=== PATIENT | male | born 2005 | race Caucasian/White ===

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

== ENCOUNTER 2023-11-08 22:22 | Inpatient (IN) ==
[2023-11-09] MEDS: Lactated Ringers 1000 ml BAG 1,000 ML IV ONE ×3 (03:18→08:55)
[2023-11-09] MEDS: Morphine 4 MG/ML VIAL (1 ml) IV ONE ×2 (05:03→09:17)
[2023-11-09] MEDS: Ondansetron 4 mg VIAL 2 MG/ML 2 ml VIAL IV ONE ×2 (05:04→09:17)
[2023-11-09] MEDS: Acetaminophen IV 1 GM/100ML 1,000 MG/100 ML BAG IV ONE (09:17)
[2023-11-09] MEDS: Iohexol 300 (CONTRAST) 10 ML SDV IV ONE (09:47)
[2023-11-09] MEDS ORDERED: Ondansetron 4 mg VIAL 2 MG/ML 2 ml VIAL IV PRN (11:12)
[2023-11-09 11:57] LABS: Rapid Strep Molecular Negative (Negative)
[2023-11-09] MEDS: NS 0.9% 1000 ml BAG 1,000 ML IV SCH (14:13)
[2023-11-09] MEDS: Enoxaparin 40 MG/0.4 ML SYR SUBCUT SCH (14:19)
[2023-11-09] MEDS: Azithromycin 500 mg/250 ml NS 500 MG/250 ML BAG IVPB ONE (14:23)
[2023-11-09] MEDS: Magic MouthWash2-BEN/MAAL/LIDO/NYST 240 ML BTL (alt formulation) SWISH SWAL SCH (14:48)
[2023-11-09] MEDS ORDERED: FLUCONAZOLE IVPB SCH (15:00)
[2023-11-09] MEDS: Fluconazole 100 MG IVPREMIX 100 MG/50 ML BAG IVPB SCH (16:14)
[2023-11-09 16:56] LABS: Hematocrit 32.7 % (38-53); Hemoglobin 11.4 g/dL (13.2-16.3); Mean Corpuscular Hemoglobin 29.3 pg (27-33); Mean Corpuscular Hgb Conc 34.8 g/dL (31-36); Mean Corpuscular Volume 84.2 fL (80-97); Mean Platelet Volume 7.2 fL (7.5-11.2); Platelet Count 247 10^3/uL (150-450); Red Blood Count 3.89 10^6/uL (4.06-5.63); Red Cell Distribution Width 12.9 % (12-17); White Blood Count 13.9 10^3/uL (3.6-10.2)
[2023-11-09] MEDS: Albuterol 2.5mg/3 ml (0.083%) NEB.SOLN INH PRN ×2 (16:57→20:42)
[2023-11-09 17:00] LABS: ABS Eosinophils 0.2 10^3/uL (0.0-0.5); ABS Lymphocytes 0.8 10^3/uL (1.0-4.8); ABS Monocytes 1.8 10^3/uL (0.0-1.1); ABS Nucleated RBC 0.01 10^3/ul; Eosinophil % 1.8 %; Lymphocyte % 5.9 %; Nucleated Red Blood Cells % 0.1 %/100WBC (0.0-0.8)
[2023-11-09] MEDS ORDERED: Vancomycin per Pharmacy 1 EA NOTE FOLLOW UP SCH (17:00)
[2023-11-09 17:07] LABS: Activated Partial Thrombo Time 30.7 seconds (26.0-38.0); INR 1.48 (0.85-1.14)
[2023-11-09 17:49] LABS: Albumin 3.7 g/dL (3.2-5.2); Albumin/Globulin Ratio 1.4 (1-3); Calcium 8.7 mg/dL (8.6-10.3); Creatinine, Serum 0.77 mg/dL (0.67-1.17); Globulin 2.6 g/dL (2-4); Potassium 3.6 mmol/L (3.5-5.0); Total Bilirubin 0.5 mg/dL (0.2-1.0); Total Protein 6.3 g/dL (6.4-8.9); eGFR CKD-EPI 131.4 (>60)
[2023-11-09] MEDS: Aztreonam 1 GM in NS 0.9% 50 ML 50 ML IV SCH (18:00)
[2023-11-09] MEDS: Vancomycin 1,500 MG in NS 0.9% 250 ml 250 ML IVPB ONE (18:21)
[2023-11-09] MEDS: guaiFENesin/CODIENE 100mg/10mg 5 ML UDC PO PRN (21:19)
[2023-11-09] MEDS ORDERED: Morphine 2 MG/ML SYRINGE IV PRN (21:55)
[2023-11-09] MEDS: Ciprofloxacin 0.3% OPTH.SOL 5 ML BTL BOTH EYES SCH (22:00)
[2023-11-09] MEDS: oxyCODONE 5 mg/5 ml ORAL.SOLN UDC PO PRN (23:00)
[2023-11-10] MEDS: Phenol 1.4% Throat Spray BTL MT PRN (02:04)
[2023-11-10] MEDS: NS 0.9% 1000 ml BAG 1,000 ML IV SCH ×3 (03:15→16:48)
[2023-11-10] MEDS: Vancomycin 1,250 MG in NS 0.9% 250 ml 250 ML IVPB SCH (03:19)
[2023-11-10] MEDS: Ondansetron 4 mg VIAL 2 MG/ML 2 ml VIAL IV PRN (05:37)
[2023-11-10] MEDS: Ciprofloxacin 0.3% OPTH.SOL 5 ML BTL BOTH EYES SCH (05:43)
[2023-11-10 06:44] LABS: ABS Basophils 0.1 10^3/uL (0.0-0.1); ABS Eosinophils 0.5 10^3/uL (0.0-0.5); ABS Lymphocytes 1.4 10^3/uL (1.0-4.8); ABS Monocytes 1.2 10^3/uL (0.0-1.1); ABS Neutrophils 6.1 10^3/uL (1.5-7.6); ABS Nucleated RBC 0.01 10^3/ul; Eosinophil % 5.2 %; Hematocrit 31.9 % (38-53); Hemoglobin 11.3 g/dL (13.2-16.3); Lymphocyte % 15.6 %; Mean Corpuscular Hemoglobin 29.9 pg (27-33); Mean Corpuscular Hgb Conc 35.4 g/dL (31-36); Mean Corpuscular Volume 84.5 fL (80-97); Mean Platelet Volume 7.4 fL (7.5-11.2); Nucleated Red Blood Cells % 0.1 %/100WBC (0.0-0.8); Platelet Count 222 10^3/uL (150-450); Red Blood Count 3.78 10^6/uL (4.06-5.63); Red Cell Distribution Width 13.2 % (12-17); White Blood Count 9.2 10^3/uL (3.6-10.2)
[2023-11-10 07:22] LABS: Albumin 3.5 g/dL (3.2-5.2); Albumin/Globulin Ratio 1.3 (1-3); Calcium 8.2 mg/dL (8.6-10.3); Creatinine, Serum 0.65 mg/dL (0.67-1.17); Globulin 2.6 g/dL (2-4); Potassium 3.7 mmol/L (3.5-5.0); Total Bilirubin 0.5 mg/dL (0.2-1.0); Total Protein 6.1 g/dL (6.4-8.9); eGFR CKD-EPI 138.3 (>60)
[2023-11-10 07:44] LABS: INR 1.54 (0.85-1.14)
[2023-11-10 07:59] LABS: Activated Partial Thrombo Time 29.6 seconds (26.0-38.0)
[2023-11-10] MEDS: Ibuprofen PED LIQ 100 MG/5 ML UDC ONE ×2 (09:31)
[2023-11-10] MEDS: Phytonadione IV (Adult) 5 MG in NS 0.9% 50 ML 50 ML IV ONE (12:54)
[2023-11-10] MEDS: Azithromycin 250 MG in NS 0.9% 250 ml 250 ML IVPB SCH (13:44)
[2023-11-10 17:18] LABS: ABS Eosinophils 0.5 10^3/uL (0.0-0.5); ABS Lymphocytes 0.9 10^3/uL (1.0-4.8); ABS Monocytes 0.9 10^3/uL (0.0-1.1); ABS Neutrophils 4.8 10^3/uL (1.5-7.6); Eosinophil % 7.2 %; Hematocrit 31.7 % (38-53); Hemoglobin 10.7 g/dL (13.2-16.3); Lymphocyte % 12.5 %; Mean Corpuscular Hemoglobin 28.5 pg (27-33); Mean Corpuscular Hgb Conc 33.6 g/dL (31-36); Mean Corpuscular Volume 84.8 fL (80-97); Mean Platelet Volume 7.4 fL (7.5-11.2); Platelet Count 259 10^3/uL (150-450); Red Blood Count 3.74 10^6/uL (4.06-5.63); White Blood Count 7.2 10^3/uL (3.6-10.2)
[2023-11-10] MEDS: CMC:Olopatadine 0.1% OPHTH (NF) 1 DROP BTL BOTH EYES SCH (17:31)
[2023-11-10 17:54] LABS: Activated Partial Thrombo Time 28.6 seconds (26.0-38.0); INR 1.41 (0.85-1.14)
[2023-11-10] MEDS: Lidocaine 2% JELLY 6 ML Topical TOPICAL PRN (20:52)
[2023-11-10] MEDS: NS 0.9% 1000 ml BAG 1,000 ML IV ONE (21:31)
[2023-11-11 06:19] LABS: ABS Eosinophils 0.6 10^3/uL (0.0-0.5); ABS Lymphocytes 0.9 10^3/uL (1.0-4.8); ABS Neutrophils 2.9 10^3/uL (1.5-7.6); Eosinophil % 10.8 %; Hematocrit 29.6 % (38-53); Hemoglobin 10.3 g/dL (13.2-16.3); Lymphocyte % 16.1 %; Mean Corpuscular Hemoglobin 29.3 pg (27-33); Mean Corpuscular Hgb Conc 34.7 g/dL (31-36); Mean Corpuscular Volume 84.3 fL (80-97); Mean Platelet Volume 7.9 fL (7.5-11.2); Nucleated Red Blood Cells % 0.1 %/100WBC (0.0-0.8); Platelet Count 268 10^3/uL (150-450); Red Blood Count 3.51 10^6/uL (4.06-5.63); Red Cell Distribution Width 13.1 % (12-17); White Blood Count 5.4 10^3/uL (3.6-10.2)
[2023-11-11 06:39] LABS: Activated Partial Thrombo Time 27.3 seconds (26.0-38.0); INR 1.34 (0.85-1.14)
[2023-11-11 06:44] LABS: Albumin 3.3 g/dL (3.2-5.2); Albumin/Globulin Ratio 1.3 (1-3); Creatinine, Serum 0.56 mg/dL (0.67-1.17); Globulin 2.5 g/dL (2-4); Potassium 3.7 mmol/L (3.5-5.0); Total Bilirubin 0.6 mg/dL (0.2-1.0); Total Protein 5.8 g/dL (6.4-8.9); eGFR CKD-EPI 144.7 (>60)
[2023-11-11 08:29] LABS: C Reactive Protein 256.96 mg/L (<8.01)
[2023-11-11] MEDS ORDERED: Vancomycin Trough Check NOTE FOLLOW UP ONE (10:00)
[2023-11-11] MEDS: NS 0.9% 1000 ml BAG 1,000 ML IV SCH (11:41)
[2023-11-11 13:24] LABS: HIV 4th Generation Nonreactive (Nonreactive)
[2023-11-11 13:25] LABS: Chlamydia trachomatis NAA Negative (Negative); Neisseria gonorrhoeae (GC) NAA Negative (Negative)
[2023-11-11 13:55] LABS: Chlamydia trachomatis NAA Negative (Negative); Neisseria gonorrhoeae (GC) NAA Negative (Negative)
[2023-11-11] MEDS: Fluconazole 100 MG IVPREMIX 100 MG/50 ML BAG IVPB SCH (14:33)
[2023-11-11] MEDS: Iohexol 300 (CONTRAST) 10 ML SDV IV ONE (16:03)
[2023-11-11] MEDS ORDERED: Zosyn per Pharmacy NOTE FOLLOW UP SCH (18:00)
[2023-11-11] MEDS: Piperacillin/Tazobac 3.375 BAG 3.375 GM/100 ML BAG IV ONE (18:33)
[2023-11-11] MEDS: Dexamethasone IV 4 MG/ML VIAL 1 ml VIAL IV SLOW PU ONE (21:01)
[2023-11-11 21:41] LABS: Urine Appearance Clear; Urine Bilirubin Negative (Negative); Urine Blood Negative (Negative); Urine Color Yellow; Urine Glucose Negative (Negative); Urine Ketones Trace (Negative); Urine Nitrite Negative (Negative); Urine Protein Trace (Negative); Urine Specific Gravity >1.050 (1.002-1.030); Urine Urobilinogen 3+ (Negative)
[2023-11-11] MEDS: ZOSYN 3.375 GM Q8H per EXTENDED INFUSION IV SCH (23:18)
[2023-11-12 08:10] LABS: ABS Lymphocytes 0.6 10^3/uL (1.0-4.8); ABS Monocytes 0.5 10^3/uL (0.0-1.1); ABS Neutrophils 3.2 10^3/uL (1.5-7.6); Eosinophil % 0.5 %; Hematocrit 33.6 % (38-53); Hemoglobin 11.5 g/dL (13.2-16.3); Lymphocyte % 14.6 %; Mean Corpuscular Hemoglobin 29.2 pg (27-33); Mean Corpuscular Hgb Conc 34.4 g/dL (31-36); Mean Corpuscular Volume 85.1 fL (80-97); Mean Platelet Volume 7.5 fL (7.5-11.2); Nucleated Red Blood Cells % 0.1 %/100WBC (0.0-0.8); Platelet Count 384 10^3/uL (150-450); Red Blood Count 3.95 10^6/uL (4.06-5.63); Red Cell Distribution Width 13.2 % (12-17); White Blood Count 4.4 10^3/uL (3.6-10.2)
[2023-11-12 08:51] LABS: Albumin 3.6 g/dL (3.2-5.2); Albumin/Globulin Ratio 1.2 (1-3); C Reactive Protein 233.24 mg/L (<8.01); Calcium 8.7 mg/dL (8.6-10.3); Creatinine, Serum 0.53 mg/dL (0.67-1.17); Potassium 4.1 mmol/L (3.5-5.0); Total Bilirubin 0.6 mg/dL (0.2-1.0); Total Protein 6.6 g/dL (6.4-8.9); eGFR CKD-EPI 147.1 (>60)
[2023-11-12 10:38] LABS: Erythrocyte Sed Rate 62 mm/Hr (0-14)
[2023-11-12] MEDS ORDERED: Benzocaine/Butamben/Tetracain (CETACAINE - SINGLE USE) 5 gm TOPICAL ONE (14:32)
[2023-11-12] MEDS ORDERED: Propofol 10 MG/ML 20 ML BTL ONE ×2 (14:34→16:46)
[2023-11-12] MEDS ORDERED: Lidocaine 2% PF 5 ML VIAL ONE (14:34)
[2023-11-12] MEDS ORDERED: Rocuronium 50 mg VIAL 10 mg/ml 5 ml VIAL (50 mg) ONE ×2 (14:37→16:07)
[2023-11-12] MEDS ORDERED: Midazolam 2 mg/2 ml VIAL 1 mg/ml 2 ml VIAL (2 mg) ONE (14:37)
[2023-11-12] MEDS ORDERED: fentaNYL 250 mcg/5 ml 50 MCG/ML 5 ml VIAL (250 MCG) ONE (14:37)
[2023-11-12] MEDS ORDERED: Glycopyrrolate IV 0.2 MG/ML 1 ML VIAL ONE (14:39)
[2023-11-12] MEDS ORDERED: Levalbuterol 0.63MG/3ML NEB UNIT OF USE INH ONE ×2 (15:17→17:39)
[2023-11-12] MEDS: Levalbuterol 0.63MG/3ML NEB UNIT OF USE INH ONE ×2 (15:21→17:40)
[2023-11-12] MEDS ORDERED: Ondansetron 4 mg VIAL 2 MG/ML 2 ml VIAL ONE (16:16)
[2023-11-12] MEDS ORDERED: Dexamethasone IV 4 MG/ML VIAL 1 ml VIAL ONE (16:16)
[2023-11-12] MEDS ORDERED: HYDROmorphone 1 MG/1 ML SYRINGE IV PRN (16:27)
[2023-11-12] MEDS ORDERED: Naloxone 0.4 mg VIAL 0.4 mg/ml 1 ml VIAL IV PRN (16:27)
[2023-11-12] MEDS ORDERED: Ondansetron 4 mg VIAL 2 MG/ML 2 ml VIAL IV PRN (16:27)
[2023-11-12] MEDS ORDERED: fentaNYL 100 mcg/2 ml 50 MCG/ML VIAL IV PRN (16:27)
[2023-11-12] MEDS ORDERED: Esmolol 10 MG/ML 10 ML (100 mg) IV ONE (17:04)
[2023-11-12] MEDS ORDERED: fentaNYL 100 mcg/2 ml 50 MCG/ML VIAL ONE (17:23)
[2023-11-12 18:13] LABS: Body Fluid Source Broncheoalveolar lav
[2023-11-12 18:31] LABS: Body Fluid Appearance Bloody; Body Fluid Color Red
[2023-11-12 19:25] LABS: Body Fluid Other Cells 9; Body Fluid Total Cells Counted 78
[2023-11-12] MEDS ORDERED: Sodium Chloride(INHALANT)0.9% 5 ML NEB.SOLN INH SCH (20:00)
[2023-11-12] MEDS ORDERED: Albuterol 2.5mg/3 ml (0.083%) NEB.SOLN INH PRN (20:31)
[2023-11-12] MEDS: methylPREDNISolone SOD SUCC 40 mg/ml 1 ml VIAL IV SCH (20:59)
[2023-11-12] MEDS: Fluconazole SUSP ORALSYR 40 MG/ML PO SCH (21:03)
[2023-11-12] MEDS: Magic MouthWash2-BEN/MAAL/LIDO/NYST 240 ML BTL (alt formulation) SWISH SWAL SCH (21:04)
[2023-11-12] MEDS: CMCS: Olopatadine 0.1% OPHTH (NF) 1 DROP BTL BOTH EYES SCH (21:05)
[2023-11-12 21:33] LABS: Adenovirus Undetected (Undetected); Bordetella parapertussis Undetected (Undetected); Bordetella pertussis Undetected (Undetected); Chlamydophila pneumoniae Undetected (Undetected); Coronavirus 229E Undetected (Undetected); Coronavirus HKU1 Undetected (Undetected); Coronavirus NL63 Undetected (Undetected); Coronavirus OC43 Undetected (Undetected); Human Metapneumovirus Undetected (Undetected); Human Rhinovirus/Enterovirus Undetected (Undetected); Influenza A Undetected (Undetected); Influenza B Undetected (Undetected); Mycoplasmoides pneumoniae Undetected (Undetected); Parainfluenza Virus 1 Undetected (Undetected); Parainfluenza Virus 2 Undetected (Undetected); Parainfluenza Virus 3 Undetected (Undetected); Parainfluenza Virus 4 Undetected (Undetected); Respiratory Syncytial Virus Undetected (Undetected); Specimen Source NASOPHARYNGEAL SWAB
[2023-11-12] MEDS ORDERED: Zosyn per Pharmacy NOTE FOLLOW UP SCH (22:00)
[2023-11-12] MEDS: Piperacillin/Tazobac 3.375 BAG 3.375 GM/100 ML BAG IV SCH (22:33)
[2023-11-12] MEDS: oxyCODONE 5 mg/5 ml ORAL.SOLN UDC PO PRN (22:34)
[2023-11-12] MEDS: methylPREDNISolone SOD SUCC 125 mg 2 ML VIAL IV ONE (22:59)
[2023-11-12] MEDS: Metoclopramide 5 MG/ML VIAL (10 mg) IV SLOW PU ONE (22:59)
[2023-11-13] MEDS: Sodium Chloride(INHALANT)0.9% 5 ML NEB.SOLN INH SCH (01:40)
[2023-11-13] MEDS: Magic MouthWash2-BEN/MAAL/LIDO/NYST 240 ML BTL (alt formulation) SWISH SWAL PRN (06:35)
[2023-11-13] MEDS: guaiFENesin 100 mg/5 ml LIQ unit dose cup PO PRN (06:36)
[2023-11-13 06:51] LABS: Hematocrit 32.3 % (38-53); Hemoglobin 11.3 g/dL (13.2-16.3); Mean Corpuscular Hemoglobin 29.5 pg (27-33); Mean Corpuscular Hgb Conc 34.9 g/dL (31-36); Mean Corpuscular Volume 84.4 fL (80-97); Mean Platelet Volume 7.2 fL (7.5-11.2); Platelet Count 461 10^3/uL (150-450); Red Blood Count 3.83 10^6/uL (4.06-5.63); Red Cell Distribution Width 13.4 % (12-17); White Blood Count 6.4 10^3/uL (3.6-10.2)
[2023-11-13 06:55] LABS: INR 1.3 (0.85-1.14)
[2023-11-13 07:49] LABS: C Reactive Protein 124.93 mg/L (<8.01); Calcium 8.5 mg/dL (8.6-10.3); Creatinine, Serum 0.52 mg/dL (0.67-1.17); Potassium 3.9 mmol/L (3.5-5.0)
[2023-11-13 08:05] LABS: ABS Monocytes 1.1 10^3/uL (0.0-1.1); ABS Neutrophils 4.3 10^3/uL (1.5-7.6); Eosinophil % 0.1 %; Lymphocyte % 15.6 %; Nucleated Red Blood Cells % 0.1 %/100WBC (0.0-0.8); RBC Morphology Normal (Normal)
[2023-11-13] MEDS ORDERED: methylPREDNISolone SOD SUCC 40 mg/ml 1 ml VIAL IV SCH (09:00)
[2023-11-13] MEDS: Lidocaine 1% MPF 5 ML VIAL INJ ONE (11:35)
[2023-11-13] MEDS: methylPREDNISolone SOD SUCC 40 mg/ml 1 ml VIAL IV ONE (12:12)
[2023-11-13] MEDS: Phenol 1.4% Throat Spray BTL MT PRN (21:59)
[2023-11-14] MEDS ORDERED: Levalbuterol 1.25MG/0.5ML NEB.SOL INH PRN (09:32)
[2023-11-14] MEDS: Sodium Chloride(INHALANT)0.9% 5 ML NEB.SOLN INH PRN (13:43)
[2023-11-14] MEDS: Magic MouthWash2-BEN/MAAL/LIDO/NYST 240 ML BTL (alt formulation) SWISH SWAL PRN (18:08)
[2023-11-15] MEDS ORDERED: Prochlorperazine 5 mg/ml 2 ml VIAL (10 mg) IV PRN (09:06)
[2023-11-15 09:17] LABS: HSV 1,PCR Negative (Negative); HSV 2, PCR Negative (Negative); Specimen Source LOWER LIP
[2023-11-15] MEDS: Saline NASAL SPRAY 0.65% BTL BOTH NARES PRN (14:18)
[2023-11-16 10:31] VITALS: BP 124/74
[2023-11-16 11:06] LABS: Hematocrit 37.8 % (38-53); Hemoglobin 13.1 g/dL (13.2-16.3); Mean Corpuscular Hemoglobin 29.2 pg (27-33); Mean Corpuscular Hgb Conc 34.6 g/dL (31-36); Mean Corpuscular Volume 84.3 fL (80-97); Mean Platelet Volume 6.9 fL (7.5-11.2); Platelet Count 651 10^3/uL (150-450); Red Blood Count 4.49 10^6/uL (4.06-5.63); Red Cell Distribution Width 13.4 % (12-17); White Blood Count 16.8 10^3/uL (3.6-10.2)
[2023-11-16 11:47] LABS: Calcium 8.5 mg/dL (8.6-10.3); Creatinine, Serum 0.72 mg/dL (0.67-1.17); Magnesium 2.4 mg/dL (1.9-2.7); Potassium 3.5 mmol/L (3.5-5.0); eGFR CKD-EPI 134.1 (>60)
[2023-11-16 11:55] LABS: ABS Eosinophils 0.2 10^3/uL (0.0-0.5); ABS Lymphocytes 1.7 10^3/uL (1.0-4.8); ABS Monocytes 0.9 10^3/uL (0.0-1.1); ABS Nucleated RBC 0.04 10^3/ul; Eosinophil % 1.2 %; Lymphocyte % 10.2 %; Nucleated Red Blood Cells % 0.2 %/100WBC (0.0-0.8)
[2023-11-16 11:56] LABS: Macrocytosis 1+; Polychromasia 1+; Smudge Cells Present
[2023-11-17 17:11] LABS: Case Number CR-24-54708
[2023-11-18 12:09] LABS: JO-1 Antibody <0.2 U; RNP Antibody, IgG <0.2 U; SS-A/Ro Antibody <0.2 U; SS-B/La Antibody <0.2 U; Scl 70 Ab, IgG, S <0.2 U; Sm (Smith) IgG Antibody <0.2 U
== END 2023-11-16 13:19 | disposition home or self-care (01) | DRG 139 ==
LOC: ED 22:22 → EDHOLD 22:22 → SSU 11-09 13:25 → SUATTDRO 11-10 12:00
PROVIDERS: ADMIT Internal Medicine Hematology & Oncology; ATTEND Internal Medicine